=== PATIENT | female | born 1970 | race Asian ===

== ENCOUNTER 2017-02-04 14:36 | Inpatient (IN) | payer SELFPAY ==
[~2017-02-04] VITALS: Ht 165.1 cm; Wt 62.6 kg
[2017-02-04 14:46] VITALS: BP 163/103
[2017-02-04] MEDS ORDERED: BEN10 PO (14:53)
[2017-02-04] MEDS ORDERED: METR250T2 PO (14:53)
--- NOTE | 2017-02-04 14:55 | NUR ---
Patient taken to US via wheelchair per tech
--- NOTE | 2017-02-04 15:03 | NUR ---
Patient back from XRAY via wheelchair per tech to bed 04.
--- NOTE | 2017-02-04 15:05 | NUR ---
PATIENT PRESENTS TO ED WITH ABD PAIN X1 DAY. SIGNED OUT AMA YESTERDAY IN [place]; DENIES N/V; SKIN IS PINK/WARM/DRY; AAOX4 WITH EVEN AND STEADY GAIT; LUNGS CLEAR BL; HR EVEN AND REGULAR; PT DENIES ANY FEVER, CP, SOB, OR COUGH AT THIS TIME; PATIENT STATES PAIN OF 5/10 AT THIS TIME; VSS; PATIENT POSITIONED FOR COMFORT; HOB ELEVATED; BEDRAILS UP X2; BED DOWN. ER MD MADE AWARE OF PT STATUS.
[2017-02-04] MEDS ORDERED: MORPHINE SULFATE 4 MG/ML SYR IVP ONE (15:25)
[2017-02-04 15:26] LABS: HEMATOCRIT 44.1 % (36-48); HEMOGLOBIN 14.8 g/dL (12.0-16.0); MEAN CORPUSCULAR HEMOGLOBIN 29 pg (27-31); MEAN CORPUSCULAR HGB CONC 33 g/dL (33-37); MEAN CORPUSCULAR VOLUME 88 fL (80-94); PLATELET COUNT (AUTO) 440 K/uL (140-450); RED BLOOD CELL COUNT(AUTO) 5.02 MIL/uL (4.20-5.40); RED CELL DISTRIBUTION WIDTH 11.7 % (11.6-13.7); WHITE BLOOD COUNT (AUTO) 15.9 K/uL (4.8-10.8)
--- NOTE | 2017-02-04 15:28 | NUR ---
Dr. Ernst evaluating patient at bedside.
[2017-02-04 15:43] LABS: BAND % (MANUAL) 4 % (0-8)
[2017-02-04 15:44] LABS: EOSINOPHILS % (MANUAL) 1 % (0-4); LYMPHOCYTES % (MANUAL) 9 % (20-46); MONOCYTES % (MANUAL) 6 % (5-12); MYELOCYTES % 2 % (0-0); PLATELET ESTIMATE ADEQUATE
[2017-02-04 15:45] LABS: NEUTROPHILS % (MANUAL) 78 (43-65)
--- NOTE | 2017-02-04 15:47 | NUR ---
AAO PT AMBULATES TO THE RESTROOM FOR URINE SAMPLE
--- NOTE | 2017-02-04 15:49 | NUR ---
PT TAKEN OFF THE UNIT FOR US VIA WHEEL CHAIR BY CHARLEY BROOKS
--- NOTE | 2017-02-04 15:49 | NUR ---
Patient going to US via wheelchair per tech.
[2017-02-04 15:51] LABS: ALBUMIN 4.7 g/dL (3.4-5.0); ANION GAP 13.4 (8-16); CALCIUM 9.1 mg/dL (8.5-10.1); CARBON DIOXIDE 29.1 mmol/L (21-32); CREATININE 0.9 mg/dL (0.6-1.3); POTASSIUM 3.5 mmol/L (3.5-5.1); TOTAL PROTEIN, SERUM 8.8 g/dL (6.4-8.2)
--- NOTE | 2017-02-04 16:03 | NUR ---
Patient back from US via wheelchair per tech.
--- NOTE | 2017-02-04 17:09 | NUR ---
DR. ZHANG at bedside.
[2017-02-04 17:32] LABS: APPEARANCE,URINE HAZY (CLEAR); BILIRUBIN,URINE NEGATIVE (NEGATIVE); BLOOD, URINE 2+ (NEGATIVE); COLOR,URINE YELLOW (YELLOW); LEUKOCYTE ESTERASE ,URINE NEGATIVE (NEGATIVE); NITRITE, URINE NEGATIVE (NEGATIVE); PROTEIN,URINE 2+ (NEGATIVE); UGLUCOSE NEGATIVE (NEGATIVE)
[2017-02-04 17:39] LABS: WBC,URINE 0-3 /HPF (0-5)
[2017-02-04 17:40] LABS: BACTERIA,URINE FEW /HPF (None Seen); MUCUS,URINE 4+ /LPF (None Seen)
--- NOTE | 2017-02-04 17:41 | NUR ---
PT COMMUNICATING WITH IN [facility] REGARDING POSSSIBLE ADMISSION
[2017-02-04] MEDS ORDERED: HYDROcodone/APAP 5/325 MG 1 TAB TAB PO PRN (18:10)
[2017-02-04] MEDS ORDERED: MORPHINE SULFATE 2 MG/ML SYR IVP PRN (18:10)
[2017-02-04] MEDS ORDERED: MORPHINE SULFATE 4 MG/ML SYR IV PRN (18:10)
[2017-02-04] MEDS ORDERED: ACETAMINOPHEN 325 MG TAB PO PRN (18:10)
[2017-02-04] MEDS ORDERED: ONDANSETRON 4 MG/2 ML VIAL IV PRN (18:10)
--- NOTE | 2017-02-04 18:34 | NUR ---
UNABLE TO GIVE REPORT AT THIS TIME, RN UNAVAILABLE WILL BACK
--- NOTE | 2017-02-04 18:42 | NUR ---
Patient went to CT via [facility].
--- NOTE | 2017-02-04 18:49 | NUR ---
Patient will be admitted to care of DR ZHANG. Admited to M/S. Will go to room 106B. Belongings list completed. Report to MARCELLE GRIGSBY.
--- NOTE | 2017-02-04 18:55 | NUR ---
[facility].
--- NOTE | 2017-02-04 19:40 | NUR ---
RECEIVED PT FROM ER VIA HALLIE PT [place]RA[place]IAN SPEAKER AAOX4 RICARDO RN VICE PRESIDENT OF TALENT ACQUISITION , PT FROM [place] IN A TRIP AND SUDDENLY STARTED WITH ABD PAIN N/V DX ACUTE CHOLECYSTITIS, GALLSTONES, SKIN IS INTACT HL ON LEFT AC GAUGE 20 ,PATENT IS ORIENTED TO THE FLOOR CALL LIGHT WITHIN REACH.
[2017-02-04 20:00] VITALS: BP 131/75
[2017-02-04] MEDS: NACL 0.9% 1,000 ML IV SCH (21:02)
[2017-02-04] MEDS: HYDROmorphone 1 MG/ML AMP IVP PRN (21:11)
--- NOTE | 2017-02-04 22:00 | NUR ---
PT GETTING SLEEP IV ON LEFT AC INFUSING WELL NOT DISTRESS NOTED
[2017-02-05] VITALS: BP 115/75
--- NOTE | 2017-02-05 00:56 | NUR ---
PT IS ASSISTED TO THE RESTROOM VOIDING WELL DENIES ANY PAIN A THIS TIME
--- NOTE | 2017-02-05 03:00 | NUR ---
PT HAS BEEN MONITORING CLOSE DENIES ANY PAIN , NPO AMBULATES TO THE RESTROOM VOIDING WELL
[2017-02-05] MEDS: NACL 0.9% 1,000 ML IV SCH ×5 (03:20→23:57)
[2017-02-05 04:00] VITALS: BP 133/79
--- NOTE | 2017-02-05 04:29 | NUR ---
PT RESTING ON BED DENIES ANY PAIN GETTING SLEEP IV ON LEFT AC INFUSING WELL
[2017-02-05 05:32] LABS: BASOPHILS # (AUTO) 0.1 K/uL (0.00-0.22); EOSINOPHILS # (AUTO) 0.2 K/uL (0-0.4); EOSINOPHILS % (AUTO) 1.5 % (0.0-4.0); HEMATOCRIT 39.2 % (36-48); HEMOGLOBIN 13.2 g/dL (12.0-16.0); LYMPHOCYTES # (AUTO) 1.3 K/uL (2.5-16.5); LYMPHOCYTES % (AUTO) 10.4 % (20.5-51.1); MEAN CORPUSCULAR HEMOGLOBIN 29 pg (27-31); MEAN CORPUSCULAR HGB CONC 34 g/dL (33-37); MEAN CORPUSCULAR VOLUME 88 fL (80-94); MONOCYTES # (AUTO) 0.5 K/uL (0.8-1.0); MONOCYTES % (AUTO) 3.9 % (1.7-9.3); NEUTROPHILS # (AUTO) 10.1 K/uL (1.8-7.7); NEUTROPHILS % (AUTO) 83.2 % (42.2-75.2); PLATELET COUNT (AUTO) 329 K/uL (140-450); RED BLOOD CELL COUNT(AUTO) 4.48 MIL/uL (4.20-5.40); WHITE BLOOD COUNT (AUTO) 12.2 K/uL (4.8-10.8)
[2017-02-05 06:47] LABS: INR 1.1 (0.8-1.2); PARTIAL THROMBOPLASTIN TIME 32.9 secs (22-35.6); PROTHROMBIN TIME 10.5 secs (10.8-13.4)
--- NOTE | 2017-02-05 07:30 | NUR ---
REPORT RECEIVED FROM WOOD MECHANIST, PT SITTING UP IN BED AAOX4, RESP EVEN UNLABORED ON ROOM AIR IN NAD, IV AT LEFT AC, SITE CLEAR, INFUSING WELL, ABD SOFT, ROUND, PT DENIES PAIN OR DISCOMFORT, PLAN OF CARE DISCUSSED, PT NPO, CALL ALCANTAR WITHIN REACH, NO IMMEDIATE NEEDS AT THIS TIME, WILL CONTINUE TO MONITOR
[2017-02-05 08:00] VITALS: BP 125/75
--- NOTE | 2017-02-05 08:03 | NUR ---
PT TO OR IN [facility] WITH OR NURSE
[2017-02-05] MEDS ORDERED: BUPIVACAINE-MPF/EPI 0.25% 30 ML VIAL INJ ONE (08:04)
[2017-02-05] MEDS ORDERED: DEXAMETHASONE 4 MG/ML VIAL ONE (08:15)
[2017-02-05] MEDS ORDERED: ROCURONIUM 50 MG/5 ML VIAL IV ONE (08:15)
[2017-02-05] MEDS ORDERED: PROPOFOL 200 MG/20 ML VIAL IV ONE (08:15)
[2017-02-05] MEDS ORDERED: SUCCINYLCHOLINE CHLORIDE 200 MG/10 ML VIAL IVP ONE (08:15)
[2017-02-05] MEDS ORDERED: GLYCOPYRROLATE 0.2 MG/ML VIAL ONE (08:15)
[2017-02-05] MEDS ORDERED: SEVOFLURANE 250 ML BTL INH ONE (08:15)
[2017-02-05] MEDS ORDERED: ONDANSETRON 4 MG/2 ML VIAL ONE (08:15)
[2017-02-05] MEDS ORDERED: NEOSTIGMINE 1:1000 10 MG/10 ML VIAL ONE (08:15)
[2017-02-05] MEDS ORDERED: MIDAZOLAM 2 MG/2 ML VIAL ONE (08:27)
[2017-02-05] MEDS ORDERED: MEPERIDINE 50 MG/ML SYR ONE (08:28)
[2017-02-05] MEDS ORDERED: fentaNYL 0.05 MG/ML VIAL ONE (08:28)
[2017-02-05] MEDS ORDERED: ONDANSETRON 4 MG/2 ML VIAL IVP PRN (09:25)
[2017-02-05] MEDS ORDERED: MEPERIDINE 25 MG/ML SYR IVP PRN (09:25)
[2017-02-05] MEDS ORDERED: diphenhydrAMINE 50 MG/ML VIAL IVP PRN (09:25)
[2017-02-05] MEDS ORDERED: HYDROmorphone 1 MG/ML AMP IVP PRN (09:25)
[2017-02-05] MEDS: LACTATED RINGERS 1,000 ML IV SCH ×3 (09:48→12:56)
--- NOTE | 2017-02-05 09:56 | NUR ---
PATIENT HAS BEEN SCREENED AND CATEGORIZED MODERATE NUTRITION RISK. PATIENT WILL BE SEEN WITHIN 3-5 DAYS OF ADMISSION. 02/07/17-02/09/[address]
[2017-02-05] MEDS ORDERED: MEPERIDINE 25 MG/ML SYR ONE (10:10)
[2017-02-05 10:55] VITALS: BP 109/63
--- NOTE | 2017-02-05 10:55 | NUR ---
PT BACK FROM OR/PACU, PT SLEEPY AROUSABLE BY VOICE, RESP EVEN UNLABORED ON ROOM AIR, SKIN WARM DRY COLOR WNL, PT DENIES PAIN, PIV AT LEFT AC, SITE CLEAR, ABD WITH 5 BANDAIDS, CDI, VSS, FRIENDS AT BEDSIDE, CALL ALCANTAR WITH IN REACH, SAFETY MEASURES IN PLACE WILL CONTINUE TO MONITOR
[2017-02-05] MEDS ORDERED: PIPER/TAZO 3.375GM/D5W PREMIX 50 ML IV SCH (12:00)
--- NOTE | 2017-02-05 12:05 | NUR ---
OR ORDERS VERSED, DEMEROL, SUBLIMAZE AND LR NOT GIVEN HERE IN [facility], PT SLEEPING QUETLY AROUSABLE, DENIES PAIN, VSS
[2017-02-05 16:00] VITALS: BP 116/72
--- NOTE | 2017-02-05 16:30 | NUR ---
PT UP OUT OF BED TO BATHROOM WITH MINIMAL ASISST, STEADY GAIT, NOW C/O INCREASED PAIN WHEN RETUNED TO BED, WILL MEDICATE,
--- NOTE | 2017-02-05 19:20 | NUR ---
REPORT GIVEN TO BLASTING COAL MINER PT IN STABLE CONDITION
--- NOTE | 2017-02-05 19:25 | NUR ---
RECEIVED REPORT FROM DAY NURSE CELIA RN. RECEIVED PATIENT IN BED ON SUPINE POSITION AWAKE, ALERT AND ORIENTED X4. S/P LAP CINDY, 4 BAND AIDE ON ABDOMEN DRY AND CLEAN. INITIAL ASSESSMENT DONE. PATIENT IS IN STABLE CONDITION AT THIS TIME.
[2017-02-05 20:00] VITALS: BP 111/73
[2017-02-05] MEDS: PIPER/TAZO 3.375GM/D5W PREMIX 50 ML IV SCH (21:03)
[2017-02-05] MEDS: HYDROmorphone 1 MG/ML AMP IVP PRN (21:05)
--- NOTE | 2017-02-05 22:00 | NUR ---
ASSISTED PATIENT TO THE BATH ROOM. VOIDING WELL. NO ACUTE DISTRESS NOTED. RESTING COMFORTABLY IN BED
--- NOTE | 2017-02-06 | NUR ---
SLEEPING AT THIS TIME. NOT IN ANY DISTRESS.
[2017-02-06 02:00] VITALS: BP 118/71
[2017-02-06] MEDS: LACTATED RINGERS 1,000 ML IV SCH (02:04)
--- NOTE | 2017-02-06 02:33 | NUR ---
PATIENT IS SLEEPING. NOT IN ACUTE DISTRESS. IV INFUSING WELL ON THE LEFT AC.
[2017-02-06] MEDS: PIPER/TAZO 3.375GM/D5W PREMIX 50 ML IV SCH ×2 (02:54→08:40)
[2017-02-06 04:00] VITALS: BP 129/73
--- NOTE | 2017-02-06 04:00 | NUR ---
SPONGE BATH GIVEN, LINEN CHANGED, ABDOMINAL BINDER ON. IN STABLE CONDITION.
[2017-02-06] MEDS: HYDROmorphone 1 MG/ML AMP IVP PRN (05:27)
--- NOTE | 2017-02-06 06:00 | NUR ---
ASSISTED PATIENT TO THE BATH. NOT IN ACUTE DISTRESS. WILL CONTINUE TO MONITOR
[2017-02-06 06:30] LABS: BASOPHILS % (AUTO) 0.3 % (0.0-2.0); EOSINOPHILS # (AUTO) 0.1 K/uL (0-0.4); EOSINOPHILS % (AUTO) 0.8 % (0.0-4.0); HEMOGLOBIN 12.1 g/dL (12.0-16.0); LYMPHOCYTES # (AUTO) 1.6 K/uL (2.5-16.5); LYMPHOCYTES % (AUTO) 17.1 % (20.5-51.1); MEAN CORPUSCULAR HEMOGLOBIN 30 pg (27-31); MEAN CORPUSCULAR HGB CONC 34 g/dL (33-37); MEAN CORPUSCULAR VOLUME 88 fL (80-94); MONOCYTES # (AUTO) 0.6 K/uL (0.8-1.0); MONOCYTES % (AUTO) 6.5 % (1.7-9.3); NEUTROPHILS # (AUTO) 7.1 K/uL (1.8-7.7); NEUTROPHILS % (AUTO) 75.3 % (42.2-75.2); PLATELET COUNT (AUTO) 334 K/uL (140-450); RED BLOOD CELL COUNT(AUTO) 4.08 MIL/uL (4.20-5.40); WHITE BLOOD COUNT (AUTO) 9.4 K/uL (4.8-10.8)
[2017-02-06 06:48] LABS: ANION GAP 9.5 (8-16); CARBON DIOXIDE 27.9 mmol/L (21-32); CREATININE 0.6 mg/dL (0.6-1.3); POTASSIUM 3.4 mmol/L (3.5-5.1); TOTAL BILIRUBIN 1.2 mg/dL (0.0-1.0); TOTAL PROTEIN, SERUM 6.4 g/dL (6.4-8.2)
--- NOTE | 2017-02-06 07:27 | NUR ---
ENDORSED TO CELIA RN FOR CONTINUITY OF CARE
--- NOTE | 2017-02-06 07:30 | NUR ---
REPORT RECEIVED FROM INDUSTRIAL RELATIONS MANAGER NURSE, PT AWAKE ALERT OX4, RESP EVEN UNLABORED ON ROOM AIR IN NAD, LEFT AC IV INFUSING WELL, SITE CLEAR, PT DENIES PAIN, ABD DRESSING/BANDAIDS, CDI, PT DENIES ANY IMMEDIATE NEEDS, WILL CONTINUE TO MONTIOR
[2017-02-06 08:00] VITALS: BP 154/86
[2017-02-06] MEDS: NACL 0.9% 1,000 ML IV SCH (08:40)
--- NOTE | 2017-02-06 09:55 | NUR ---
SITTING UP EATING BREAKFAST, PT DENIES PAIN, STATES FEELS GOOD, FRIEND AT BEDSIDE, PLAN OF CARE DISCUSSED, WILL CALL FRIEND WHEN DC ORDERS IN, PT DENIES ANY IMMEDIATE NEEDS, WILL CONTINUE TO MONITOR
--- NOTE | 2017-02-06 10:08 | NUR ---
DR ZHANG ON THE PHONE, PT CONDITION DISCUSSED, OK TO DC HOME NOW WITH RX NORCO AND AUGMENTIN, F/U WITH DR ZHANG 02/11, WILL DC PT NOW
[2017-02-06 10:14] VITALS: BP 134/88
[2017-02-06] MEDS ORDERED: HYDR-4446 PO ×3 (10:25→10:28)
[2017-02-06] MEDS ORDERED: AMOX-999 PO ×2 (10:26→10:29)
[2017-02-06 11:00] VITALS: BP 134/88
--- NOTE | 2017-02-06 11:15 | NUR ---
DC INSTRUCTION AND RX GIVEN AND EXPLAINED TO PT VIA PHONE DIRECTOR OF SUSTAINABILITY # [id number], ALL QUESTIONS ASKED AND ANSWERED, PT VERBALIZED FULL UNDERSTANDING OF DC INSTRUCTION, WOUNDS PICTURED, WOUNDS WELL APPROXIMATED WITH BOB, CDI, PT THIEN PO WELL FOR BREAKFAST, UP OUT OF BED CHANGED CLOTHES WITHOUT PROBLEM, DC HOME NOW WITH FRIEND SHIV DAVE [phone], ESCORTED OUT IN WHEELCHAIR
== END 2017-02-06 11:18 | disposition home or self-care (01) | DRG 854 ==
LOC: MED 14:37 → MTU 18:14
PROVIDERS: ADMIT Surgery; ATTEND Surgery
PROC: 0FT44ZZ Resection of Gallbladder, Percutaneous Endoscopic Approach (ICD-10-PCS; principal; 2017-02-05 08:30)
DX: A41.9 Sepsis, unspecified organism (principal); K80.12 Calculus of gallbladder with acute and chronic cholecystitis without obstruction; R79.89 Other specified abnormal findings of blood chemistry
CPT/HCPCS: 36415; 71010; 74150; 76705; 80053; 81001; 81025; 83690; 85025; 85610; 85730; 86886; 86900; 86901; 87081; 93005; 96374; 99285; J0330; J1100; J1170; J2175; J2250; J2270; J2405; J2543; J2704; J2710; J3010; J3490; J7030